=== PATIENT | female | born 1955 | race Caucasian/White ===

== ENCOUNTER 2018-09-16 05:21 | Day surgery (SDC) | payer OTHER ==
[2018-09-13 13:29] LABS: BASOPHILS # (AUTO) 0.01 x10^3/uL (0-0.1); BASOPHILS % (AUTO) 0 % (0-1); EOSINOPHILS # (AUTO) 0.01 x10^3/uL (0-0.4); EOSINOPHILS % (AUTO) 0 % (1-7); LYMPHOCYTES # (AUTO) 1.98 x10^3/uL (1-3.4); LYMPHOCYTES % (AUTO) 31 % (22-44); MD NO; MEAN CORPUSCULAR HGB CONC 31.3 g/dL (32.4-35.8); MEAN PLATELET VOLUME 8.2 fL (7.4-10.4); MONOCYTES # (AUTO) 0.55 x10^3/uL (0.2-0.8); MONOCYTES % (AUTO) 9 % (2-9); NEUTROPHILS # (AUTO) 3.75 x10^3/uL (1.8-6.8); NEUTROPHILS % (AUTO) 60 % (42-75); PLATELET COUNT 311 x10^3/uL (130-400); RED BLOOD COUNT 4.88 x10^6/uL (3.82-5.3); RED CELL DISTRIBUTION WIDTH 16.7 % (9.6-15.2)
[2018-09-13 13:40] LABS: ALANINE AMINOTRANSFERASE 32 U/L (12-78); ALBUMIN 3.3 g/dL (3.4-5.0); ANION GAP 6 mmol/L (5-15); CALCIUM 9.2 mg/dL (8.5-10.1); CHLORIDE 108 mmol/L (98-107); CREATININE 0.83 mg/dL (0.55-1.02)
[2018-09-13 13:42] LABS: ALKALINE PHOSPHATASE 103 U/L (45-117); BILIRUBIN,TOTAL 0.2 mg/dL (0.2-1.0); TOTAL PROTEIN 7.4 g/dL (6.4-8.2)
[2018-09-13 13:48] LABS: CULTURE INDICATED? YES; HCG UR SG 1.011 (1.003-1.030); MICROSCOPIC AUTO
[~2018-09-16] VITALS: Ht 170.2 cm; Wt 112.3 kg
[~2018-09-16 05:21] MED LIST: ALBU8.5H8 INH; ALLO100T30 PO; AMLO-150 PO; LEVO112T4 PO; LISI40TA PO; OXYB5TAB7 PO; PRAV20TA2 PO
[2018-09-16] MEDS ORDERED: LACTATED RINGERS 1,000 ML IV SCH (06:12)
[2018-09-16] MEDS ORDERED: OxyconTIN ER 10 MG TAB.ER PO ONE (06:30)
[2018-09-16] MEDS ORDERED: GABAPENTIN 300 MG CAPSULE PO ONE (06:30)
[2018-09-16] MEDS ORDERED: ACETAMINOPHEN 500 MG TABLET PO ONE (06:30)
[2018-09-16 06:40] VITALS: BP 143/82
[2018-09-16] MEDS ORDERED: BUPIVACAINE/PF 0.25% ONE (07:04)
[2018-09-16] MEDS ORDERED: EPINEPHRINE 1 MG/ML, 1ML ONE (07:04)
[2018-09-16] MEDS ORDERED: FLUORESCEIN SODIUM 500 MG/5 ML ONE (07:04)
[2018-09-16] MEDS ORDERED: APREPITANT 40 MG CAPSULE ONE (07:13)
[2018-09-16] MEDS ORDERED: MIDAZOLAM 1 MG/ML, 2ML ONE (07:21)
[2018-09-16] MEDS ORDERED: ROCURONIUM 10MG/ML,5ML ONE (07:22)
[2018-09-16] MEDS ORDERED: FENTANYL PF 250 MCG/5ML ONE (07:22)
[2018-09-16] MEDS ORDERED: LIDOCAINE-MPF 2% ,5ML ONE (07:23)
[2018-09-16] MEDS ORDERED: PROPOFOL 10 MG/ML, 20ML ONE (07:23)
[2018-09-16] MEDS ORDERED: PHENYLEPHRINE 10 MG/ML ONE (07:24)
[2018-09-16] MEDS ORDERED: PROPOFOL 50 ML ONE ×2 (07:40→08:32)
[2018-09-16] MEDS ORDERED: DEXAMETHASONE 4 MG/ML, 1ML ONE ×2 (07:43)
[2018-09-16] MEDS ORDERED: HYDROmorphone 2 MG/ML, 1ML IVPush PRN (08:30)
[2018-09-16] MEDS ORDERED: HALOPERIDOL 5 MG/ML IV PRN (08:30)
[2018-09-16] MEDS ORDERED: OXYcodone 5 MG/5 ML ORAL.SOL UDC PO PRN (08:30)
[2018-09-16] MEDS ORDERED: MEPERIDINE/PF 25MG/0.5ML IVPush PRN (08:30)
[2018-09-16] MEDS ORDERED: FENTANYL PF 100 MCG/2ML IV PRN (08:30)
[2018-09-16] MEDS ORDERED: PROMETHAZINE 25 MG/ML, 1ML IV PRN (08:30)
[2018-09-16] MEDS ORDERED: hydrALAzine 20 MG/ML, 1ML IV PRN (08:30)
[2018-09-16] MEDS ORDERED: ALBUTEROL SULFATE 2.5 MG/3 ML NPPB PRN (08:30)
[2018-09-16] MEDS ORDERED: ONDANSETRON 2MG/ML, 2ML ONE ×2 (08:55)
[2018-09-16] MEDS ORDERED: SUGAMMADEX 200 MG/2 ML IVPush ONE (08:57)
== END 2018-09-16 14:35 | disposition home or self-care (01) ==
LOC: OUT 05:21
PROVIDERS: ATTEND Obstetrics & Gynecology
DX: N81.2 Incomplete uterovaginal prolapse (principal); N84.0 Polyp of corpus uteri; D25.9 Leiomyoma of uterus, unspecified; N80.0 Endometriosis of uterus; I10 Essential (primary) hypertension; E78.5 Hyperlipidemia, unspecified; M10.9 Gout, unspecified; G47.33 Obstructive sleep apnea (adult) (pediatric); E03.9 Hypothyroidism, unspecified; E66.9 Obesity, unspecified; Z68.39 Body mass index [BMI] 39.0-39.9, adult; Z79.899 Other long term (current) drug therapy; Z88.2 Allergy status to sulfonamides; Z91.09 Other allergy status, other than to drugs and biological substances; Z83.3 Family history of diabetes mellitus; Z82.3 Family history of stroke; Z82.49 Family history of ischemic heart disease and other diseases of the circulatory system
CPT/HCPCS: 36415; 57250; 57268; 58550; 80053; 81001; 81025; 85014; 85018; 85025; 86850; 86900; 87086; 87147; 88307; 93005; J0171; J1100; J2250; J2370; J2405; J2704; J3010; J3490; J7120